=== PATIENT | female | born 1995 | race Two or more races ===

== ENCOUNTER 2024-08-28 12:56 | Outpatient (AMB) | payer MEDICAID, SELFPAY ==
--- NOTE | 2024-08-28 13:05 | PD.ORTHCLVIS ---
Vital signs 08/28/24 13:06 Height 1.63 m Height Method Stated Weight 72.575 kg Weight Measurement Method Estimated by Patient BMI 27.4 BP 103/71 Blood Pressure Source Automatic Cuff Blood Pressure Location Left Upper Arm Position Sitting Respiration 18 Pulse 98 Pulse Source Monitor Temp 97.7 F Temp Source Temporal Artery Scan Pulse Oximetry (%) 97 Oxygen Delivery Method Room Air Med/Allergies Allergies & Medications Allergies No Known Allergies Allergy (Verified 08/28/24 13:07) Medication Reconciliation prednisone 5 mg tablet 5 mg PO Q OTHER DAY 08/28/24 [History Confirmed 08/28/24] Exam Exam Patient is in no acute distress and is cooperative with the examination today. Breathing is nonlabored. In no respiratory distress. Patient has no paraspinal tenderness. Spinal deformity cannot be appreciated. The gait of the patient is nonantalgic Bilateral extremities were evaluated and demonstrates sensation intact to light touch. Palpable pedal pulses are present. No significant edema is present. Bilateral knees were examined and the patient has full strength and range of motion.. The right hip was examined. Patient was able to flex to 90 degrees, adduct to 30 degrees, abduct to 40 degrees, internally rotate to 20 degrees, and externally rotate to 20 degrees. Patient has a negative logroll. Stinchfield is negative. The patient is nontender diffusely to touch. The left hip was examined. Patient was able to flex to 90 degrees, adduct to 30 degrees, abduct to 40 degrees, internally rotate to 2 degrees, and externally rotate to 10 degrees. Patient has a Positive. The stinchfield is negative. [facility] from [facility] imaging demonstrate complete joint space loss symmetrically. There is no protrusio Assessment and Plan Problem List (1) Rheumatoid arthritis involving left hip: Status: Acute Plan: Patient is a 28-year-old female with a left hip pain and left hip rheumatoid arthritis. We discussed nonoperative and operative options.I would first like to start with conservative treatment. We discussed that he is off and on for age. We will start with a cortisone injection of her left hip. I have also sent her prescription for anti-inflammatories Office Procedures GNS Level of Care Nursing/Assessment Patient Status: Initial/New Patient Nursing Assessment/Reassesment: Medication Reconciliation, Update PMH in EMR and Vital Signs Coordination of Care: Complex Care and Chronic Disease 1-5, Education Complex Pt/Fam, Consent,records obtained, informed consent, 1 Ins Authorization, Lab and Imaging orders, Results/Orders obtained and Staff clarify orders New Patient Charge New Patient Point Assignment: 1124 New Patient Point Charge: CLAIMS SUPPORT SPECIALIST Level 4 ([id number]) MA Intake Visit Data Collection New Patient or Established: New Patient (never been to [facility]) Reason for Visit:: LEFT HIP PAIN Seen by Clinical Staff ONLY (RN/MA): No Continuous Mining Operator Required: No PCP or OBGYN visit in last 3 months: Yes Hx Now: No Do You Feel Safe at Home: Yes Authorities Contacted: N/A Questionairres Past Medical History Past Medical History Have you ever been diagnosed with any of the following: Subjective Visit Visit for: new patient and hip (LEFT) Immunization / Flu Flu Vaccine in the Last 12 Months: No Flu Vaccine Exclusion Criteria: Refused by Patient History of Present Illness Chief complaint: Left hip pain Radha is a 28-year-old female with severe rheumatoid arthritis. She had multiple joint involvement and is rheumatoid Medications including rinvoq and prednisone. The left hip pain is affecting her quality life and happiness. She has no rides injections. She has not had NSAIDs. Pain Pain level (0-10): 10 Pain duration: ALL DAY Pain location: inside (medial) and other (specify) (HIP) Pain quality: sharp, dull and aching Pain timing: night, increases with activity and stairs Associated signs & symptoms: none Ambulatory data Ambulatory device: cane and other (specify) (WHEELCHAIR) Treatments Number of previous injections: 1 Improvement with previous injections: No Improvement with PT: No Improvement with NSAIDS: no Review of Systems Review of Systems: All systems negative unless otherwise noted in HPI.
[2024-08-28 13:06] VITALS: BP 103/71; PULSE 98; RESP 18; TEMP 36.5; O2SAT 97; BMI 27.4
== END 2024-08-28 13:34 | disposition home or self-care (01) ==
LOC: HODSRG 12:56
PROVIDERS: Supervising Provider Orthopaedic Surgery Adult Reconstructive Orthopaedic Surgery; Visit Provider Orthopaedic Surgery Adult Reconstructive Orthopaedic Surgery
DX: M06.852 Other specified rheumatoid arthritis, left hip (principal); M25.552 Pain in left hip
CPT/HCPCS: 99204; G0463

== ENCOUNTER → 2024-09-22 | Outpatient (CLI) | payer MEDICAID, SELFPAY ==
--- NOTE | 2024-09-22 13:02 | XR_ITS ---
Examination: Steroid injection left hip joint with imaging guidance Fluoroscopy AP right hip single view. Exam date and time: September 22, 2024 1322 hours INDICATIONS: Left hip joint pain one year Informed consent provided. Technique: A timeout was completed verifying correct patient, procedure, site, positioning. The patient was placed in supine position appropriate for the steroid injection The patient's site was prepped and draped in sterile fashion 5 cc 1% lidocaine administered locally for anesthesia. Sterile drape applied, maximum barrier sterile technique. Utilizing fluoroscopic guidance, 23-gauge needle placed in the left hip joint 1 cc Kenalog 40 in 5 cc 0.25% Marcaine introduced into the left hip joint The patient was in satisfactory and stable condition on completion of the procedure Attending radiologist was present for the entire procedure Estimated blood loss 0 cc. Impression: Successful steroid injection left hip joint with imaging guidance Fluoroscopy 0.1 minute radiation dose 1.83 milligray 1 spot AP fluoroscopic left hip film .
== END | disposition home or self-care (01) ==
LOC: SIRX 12:41
PROVIDERS: PCP Internal Medicine Rheumatology; Referring Provider Orthopaedic Surgery Adult Reconstructive Orthopaedic Surgery; Visit Provider Orthopaedic Surgery Adult Reconstructive Orthopaedic Surgery
DX: M16.12 Unilateral primary osteoarthritis, left hip (principal); M05.6 Rheumatoid arthritis with involvement of other organs and systems
CPT/HCPCS: 20610; 77002

== ENCOUNTER 2024-09-29 08:56 | Outpatient (AMB) | payer MEDICAID, SELFPAY ==
[2024-09-29 09:15] VITALS: BP 96/62; PULSE 74; RESP 18; TEMP 36.5; O2SAT 92; BMI 28.1
--- NOTE | 2024-09-29 09:15 | ORTHONT_ITS ---
Vital signs 09/29/24 09:15 Height 1.63 m Height Method Stated Weight 74.871 kg Weight Measurement Method Standing Scale BMI 28.1 BP 96/62 Blood Pressure Source Automatic Cuff Blood Pressure Location Right Upper Arm Position Sitting Respiration 18 Pulse 74 Pulse Source Monitor Temp 97.7 F Temp Source Temporal Artery Scan Pulse Oximetry (%) 92 L Oxygen Delivery Method Room Air Med/Allergies Allergies & Medications Allergies No Known Allergies Allergy (Verified 09/29/24 09:16) Medication Reconciliation prednisone 5 mg tablet 5 mg PO Q OTHER DAY 08/28/24 [History Confirmed 09/29/24] Exam Exam Patient is in no acute distress and is cooperative with the examination today. Breathing is nonlabored. In no respiratory distress. Patient has no paraspinal tenderness. Spinal deformity cannot be appreciated. The gait of the patient is nonantalgic Bilateral extremities were evaluated and demonstrates sensation intact to light touch. Palpable pedal pulses are present. No significant edema is present. Bilateral knees were examined and the patient has full strength and range of motion.. The right hip was examined. Patient was able to flex to 90 degrees, adduct to 30 degrees, abduct to 40 degrees, internally rotate to 20 degrees, and externally rotate to 20 degrees. Patient has a negative logroll. Stinchfield is negative. The patient is nontender diffusely to touch. The left hip was examined. Patient was able to flex to 90 degrees, adduct to 30 degrees, abduct to 40 degrees, internally rotate to 2 degrees, and externally rotate to 10 degrees. Patient has a Positive. The stinchfield is negative. X-rays from [facility] imaging demonstrate complete joint space loss symmetrically. There is no protrusio. The x-rays are from August 2023 Assessment and Plan Problem List (1) Rheumatoid arthritis involving left hip: Status: Acute Plan: Patient is a 28-year-old female with a left hip pain and left hip rheumatoid arthritis. We discussed nonoperative and operative options. I would first like to start with conservative treatment. We discussed that she is extremely young for her age. The x-rays are over a-year-old and the last hip injection did not help. I discussed with her I would get new x-rays as it has been a year. We will need a plan to wean off the medication if we were to proceed with surgery. Office Procedures GNS Level of Care Nursing/Assessment Patient Status: Established Patient Nursing Assessment/Reassesment: Medication Reconciliation, Update PMH in EMR and Vital Signs Coordination of Care: Complex Care and Chronic Disease 1-5, Education Complex Pt/Fam, Consent,records obtained, informed consent, Results/Orders obtained and Staff clarify orders Established Patient Charge Established Patient Point Assignment: 95 Established Patient Point Charge: EP Level 3 (80-115) MA Intake Visit Data Collection New Patient or Established: Established Patient (seen at [facility] within 3 years) Reason for Visit:: F/U HIP INJECTION Seen by Clinical Staff ONLY (RN/MA): No Verbal consent obtained for Telemed visit?: No Sales Developer Required: No PCP or OBGYN visit in last 3 months: Yes Hx Now: No Do You Feel Safe at Home: Yes Authorities Contacted: N/A Questionairres Past Medical History Past Medical History Have you ever been diagnosed with any of the following: Subjective Visit Visit for: follow up visit, hip and injections Immunization / Flu Flu Vaccine in the Last 12 Months: No Flu Vaccine Exclusion Criteria: No Exclusion Criteria History of Present Illness Chief complaint: F/U HIP INJECTIONS Radha is a 28-year-old female with severe rheumatoid arthritis. She had multiple joint involvement and is rheumatoid Medications including rinvoq and prednisone. The left hip pain is affecting her quality life and happiness. She had a recent left hip injection and reported almost no relief. She is in a wheelchair or uses a cane. The pain is affecting her quality life and happiness and she reports has been miserable for over a year Pain Pain level (0-10): 10 Pain duration: ALL DAY Pain location: groin Pain quality: sharp Pain timing: night, increases with activity and stairs Associated signs & symptoms: weakness Ambulatory data Ambulatory device: cane and other (specify) (WHEELCHAIR) Treatments Number of previous injections: 1 Improvement with previous injections: No Improvement with PT: No Improvement with NSAIDS: no Review of Systems Review of Systems: All systems negative unless otherwise noted in HPI.
--- NOTE | 2024-09-29 09:36 | XR_ITS ---
Examination:Left hip AP, lateral, AP pelvis 3 views Technique: Hip AP lateral, AP pelvis, 3 views Exam date and time:September 29, 2024 0946 hours INDICATIONS: Left hip pain one year, diagnosis rheumatoid arthritis FINDINGS: Severe osteopenia Severe narrowing left hip joint Moderate narrowing right hip joint No hip or pelvic fracture IMPRESSION: Severe narrowing left hip joint.
--- NOTE | 2024-09-29 09:36 | XR_ITS ---
Examination: Lumbar spine 3 views Technique one AP lateral coned lateral lower lumbar spine 3 views Exam date and time: September 29, 2024 0949 hours INDICATIONS: Lower back pain one year, diagnosis rheumatoid arthritis. FINDINGS: Satisfactory alignment lumbar vertebral bodies Mild to moderate disc narrowing L5-S1 No lumbar fracture No spondylolisthesis IMPRESSION: Mild to moderate lumbar disc narrowing L5-S1
== END 2024-09-29 09:38 | disposition home or self-care (01) ==
PROVIDERS: Supervising Provider Orthopaedic Surgery Adult Reconstructive Orthopaedic Surgery; Visit Provider Orthopaedic Surgery Adult Reconstructive Orthopaedic Surgery
DX: M06.852 Other specified rheumatoid arthritis, left hip (principal); M25.552 Pain in left hip; M48.07 Spinal stenosis, lumbosacral region
CPT/HCPCS: 72100; 73502; 99213; G0463

== ENCOUNTER 2024-10-13 11:40 | Outpatient (AMB) | payer MEDICAID, SELFPAY ==
--- NOTE | 2024-10-13 11:41 | PD.ORTHTELE ---
Med/Allergies Allergies & Medications Allergies No Known Allergies Allergy (Verified 10/13/24 11:41) Medication Reconciliation prednisone 5 mg tablet 5 mg PO Q OTHER DAY 08/28/24 [History Confirmed 10/13/24] Subjective Visit Visit for: follow up visit, hip and x-rays Immunization / Flu Flu Vaccine in the Last 12 Months: No Flu Vaccine Exclusion Criteria: No Exclusion Criteria History of Present Illness Chief complaint: F/U HIP XRAYS Jihan is a pleasant 28-year-old female with rheumatoid arthritis and a left hip pain. She is on immunomodulators. She is seeing her labeling machine operator tomorrow. She had a cortisone injection of her left hip and only received moderate relief. The pain has already returned. Personal History Occupation: UNEMPLOYED Pain Pain level (0-10): 10 Pain location: groin and anterior Pain quality: sharp Pain timing: night and increases with activity Associated signs & symptoms: numbness, weakness and stiffness Ambulatory data Ambulatory device: cane, walker and other (specify) (WHEELCHAIR) Treatments Improvement with previous injections: No Improvement with PT: No Improvement with NSAIDS: no Review of Systems Review of Systems: All systems negative unless otherwise noted in HPI. Assessment and Plan Problem List (1) Rheumatoid arthritis involving left hip: Status: Acute Plan: Patient is a 28-year-old female with a left hip pain and left hip rheumatoid arthritis. We discussed nonoperative and operative options.We looked at her x-rays and she has severe arthritis with complete joint space obliteration of the left hip. I discussed with her that she is awfully young for her age. I would like to continue with conservative treatment if possible. I would like for her to get her rheumatoid arthritis optimized before proceeding with surgery if possible. I discussed with her that she will likely need a revision in the future and is very important delay surgery if possible if she can tolerate it Office Procedures GNS Level of Care Nursing/Assessment Patient Status: Established Patient Nursing Assessment/Reassesment: Medication Reconciliation, Update PMH in EMR and Vital Signs Coordination of Care: Complex Care and Chronic Disease 1-5, Education Complex Pt/Fam, Consent,records obtained, informed consent, Results/Orders obtained and Staff clarify orders Established Patient Charge Established Patient Point Assignment: 95 Telehealth Telemed Phone/Video with patient at home & Dr,PA,WOOD FINISHER APPRENTICE: Yes
== END 2024-10-13 11:45 | disposition home or self-care (01) ==
LOC: HODSRG 11:40
PROVIDERS: Supervising Provider Orthopaedic Surgery Adult Reconstructive Orthopaedic Surgery; Visit Provider Orthopaedic Surgery Adult Reconstructive Orthopaedic Surgery
DX: M06.9 Rheumatoid arthritis, unspecified (principal)
CPT/HCPCS: 99212; G0463

== ENCOUNTER 2024-11-24 08:05 | Outpatient (AMB) | payer MEDICAID, SELFPAY ==
--- NOTE | 2024-11-24 08:13 | PD.ORTHCLVIS ---
Vital signs 11/24/24 08:14 Height 1.63 m Height Method Stated Weight 75.977 kg Weight Measurement Method Standing Scale BMI 28.5 BP 99/67 Blood Pressure Source Automatic Cuff Blood Pressure Location Right Upper Arm Position Sitting Respiration 18 Pulse 75 Pulse Source Monitor Temp 97.6 F Temp Source Temporal Artery Scan Pulse Oximetry (%) 98 Oxygen Delivery Method Room Air Med/Allergies Allergies & Medications Allergies No Known Allergies Allergy (Verified 11/24/24 08:20) Medication Reconciliation prednisone 5 mg tablet 5 mg PO Q OTHER DAY 08/28/24 [History Confirmed 11/24/24] Exam Exam Patient is in no acute distress and is cooperative with the examination today. Breathing is nonlabored. In no respiratory distress. Patient has no paraspinal tenderness. Spinal deformity cannot be appreciated. The gait of the patient is nonantalgic Bilateral extremities were evaluated and demonstrates sensation intact to light touch. Palpable pedal pulses are present. No significant edema is present. Bilateral knees were examined and the patient has full strength and range of motion.. The right hip was examined. Patient was able to flex to 90 degrees, adduct to 30 degrees, abduct to 40 degrees, internally rotate to 20 degrees, and externally rotate to 20 degrees. Patient has a negative logroll. Stinchfield is negative. The patient is nontender diffusely to touch. The left hip was examined. Patient was able to flex to 90 degrees, adduct to 30 degrees, abduct to 40 degrees, internally rotate to 2 degrees, and externally rotate to 10 degrees. Patient has a Positive. The stinchfield is negative. X-rays from [facility] imaging demonstrate complete joint space loss symmetrically. There is no protrusio. The x-rays are from August 2023 Assessment and Plan Problem List (1) Rheumatoid arthritis involving left hip: Status: Acute Plan: Patient is a 28-year-old female with a left hip pain and left hip rheumatoid arthritis. We discussed nonoperative and operative options. She has severe rheumatoid arthritis with complete obliteration of the left hip. We thus discussed different treatment options including anti-inflammatories, injections, physical therapy, and rheumatology medications. She She reports the pain is miserable and is affecting her quality life. We discussed that she is awfully young for her age and discussed that she is at high risk for infection and needing a revision in the future because of her age. She understands the risks and would still like to proceed with surgery. We would like for her to see her it generalist as well as get a medical clearance. In particular, we do have to figure out how to dose the Rinvoq and when to stop it. The nature and purpose of the total hip replacement, alternative method(s) of treatment, the material risks involved, and the possibility of complications were fully explained to the patient. The patient does NOT have any of the following contraindications to YAW: - Active infection of the hip joint, OR - Active systemic bacteremia, OR - Active skin infection or open wound at surgical site, OR - Neuropathic arthritis, OR - Severe, rapidly progressive neurological disease, OR - Severe medical condition that makes risks of the surgery outweigh the potential benefit The patient was told the most common risks and complications associated with a total hip replacement include, but are not limited to: blood clots in the leg, fatal pulmonary embolism, dislocation of the prosthesis, intraoperative and postoperative fractures of the femur or acetabulum, infection, failure of the prosthesis or grafting materials, complications from anesthesia, reactions to blood transfusions, postoperative leg length inequality, instability of the hip replacement, nerve damage or injury, vascular injury, delayed wound healing, infection, other injury or even . In addition, there are risks associated with anesthesia given during this operation. Also, the patient was told that after undergoing a total hip replacement there may still be persistent pain or disability. The patient was informed that the success of this operation in part depends upon the mechanical devices which are going to be implanted and that these devices can fail or malfunction, and may need to be repaired or replaced and there are no guarantees as to the longevity of this device or its parts and that it or its parts could fail prematurely. The patient was also notified that during the course of surgery, there may be a need to use bone graft from donors, and that any bone graft used will be carefully screened for communicable diseases, including AIDS, hepatitis, Deznel-Creutzfeldt, or other diseases, but despite the screening procedures, there is a small chance that they could contract one of these diseases. Finally, the patient was asked to follow completely and fully with all advice and recommended treatments, and that recovery and ultimate outcome are affected by their compliance with recommended treatment. We discussed the risks, benefits and treatment alternatives, and the patient is interested in proceeding with surgery. We will try to set this up as expeditiously as possible. Office Procedures GNS Level of Care Nursing/Assessment Patient Status: Established Patient Nursing Assessment/Reassesment: Medication Reconciliation, Update PMH in EMR and Vital Signs Coordination of Care: Complex Care and Chronic Disease 1-5, Education Complex Pt/Fam, Consent,records obtained, informed consent, Results/Orders obtained and Staff clarify orders Established Patient Charge Established Patient Point Assignment: 95 Established Patient Point Charge: EP Level 3 (80-115) MA Intake Visit Data Collection New Patient or Established: Established Patient (seen at [facility] within 3 years) Reason for Visit:: FOLLOW UP Seen by Clinical Staff ONLY (RN/MA): No Verbal consent obtained for Telemed visit?: No Medication Care Manager Required: No PCP or OBGYN visit in last 3 months: Yes Hx Now: No Do You Feel Safe at Home: Yes Authorities Contacted: N/A Questionairres Past Medical History Past Medical History Have you ever been diagnosed with any of the following: Respiratory Problems Smoking: No Smoking Cessation Counseling: No Smoking Exposure: No Tobacco Use: No Clubbing: No Subjective Visit Visit for: follow up visit Immunization / Flu Flu Vaccine in the Last 12 Months: No Flu Vaccine Exclusion Criteria: No Exclusion Criteria History of Present Illness Chief complaint: FOLLOW UP Radha is a 28-year-old female with severe rheumatoid arthritis. She had multiple joint involvement and is rheumatoid Medications including rinvoq and prednisone. The left hip pain is affecting her quality life and happiness. She had a recent left hip injection and reported almost no relief. She is in a wheelchair or uses a cane. The pain is affecting her quality life and happiness and she reports has been miserable for over a year. She has also tried physical therapy for over 5 months and has now had 2 hip injections Pain Pain level (0-10): 10 Pain duration: ALL DAY Pain location: inside (medial), outside (lateral), anterior and posterior Pain quality: sharp, dull, aching, burning and shocking Pain timing: night, increases with activity and stairs Associated signs & symptoms: none Ambulatory data Ambulatory device: cane Treatments Number of previous injections: 1 Improvement with previous injections: No Improvement with PT: No Improvement with NSAIDS: no Review of Systems Review of Systems: All systems negative unless otherwise noted in HPI.
[2024-11-24 08:14] VITALS: BP 99/67; PULSE 75; RESP 18; TEMP 36.4; O2SAT 98; BMI 28.5
== END 2024-11-24 08:29 | disposition home or self-care (01) ==
LOC: HODSRG 08:05
PROVIDERS: Supervising Provider Orthopaedic Surgery Adult Reconstructive Orthopaedic Surgery; Visit Provider Orthopaedic Surgery Adult Reconstructive Orthopaedic Surgery
DX: M06.852 Other specified rheumatoid arthritis, left hip (principal); M25.552 Pain in left hip
CPT/HCPCS: 99213; G0463

== ENCOUNTER 2024-12-31 08:04 | Outpatient (AMB) | payer MEDICAID, SELFPAY ==
--- NOTE | 2024-12-31 08:15 | ORTHONT_ITS ---
Vital signs 12/31/24 08:16 Height 1.63 m Height Method Stated Weight 78.528 kg Weight Measurement Method Standing Scale BMI 29.5 BP 109/76 Blood Pressure Source Automatic Cuff Blood Pressure Location Left Upper Arm Position Sitting Respiration 18 Pulse 76 Pulse Source Monitor Temp 97.7 F Temp Source Temporal Artery Scan Pulse Oximetry (%) 98 Oxygen Delivery Method Room Air Med/Allergies Allergies & Medications Allergies No Known Allergies Allergy (Verified 12/31/24 08:17) Medication Reconciliation prednisone 5 mg tablet 5 mg PO Q OTHER DAY 08/28/24 [History Confirmed 12/31/24] Exam Exam Patient is in no acute distress and is cooperative with the examination today. Breathing is nonlabored. In no respiratory distress. Patient has no paraspinal tenderness. Spinal deformity cannot be appreciated. The gait of the patient is nonantalgic Bilateral extremities were evaluated and demonstrates sensation intact to light touch. Palpable pedal pulses are present. No significant edema is present. Bilateral knees were examined and the patient has full strength and range of motion.. The right hip was examined. Patient was able to flex to 90 degrees, adduct to 30 degrees, abduct to 40 degrees, internally rotate to 20 degrees, and externally rotate to 20 degrees. Patient has a negative logroll. Stinchfield is negative. The patient is nontender diffusely to touch. The left hip was examined. Patient was able to flex to 90 degrees, adduct to 30 degrees, abduct to 40 degrees, internally rotate to 2 degrees, and externally rotate to 10 degrees. Patient has a Positive. The stinchfield is negative. X-rays from [facility] imaging demonstrate complete joint space loss symmetrically. There is no protrusio. The x-rays are from August 2023 Assessment and Plan Problem List (1) Rheumatoid arthritis involving left hip: Status: Acute Plan: Patient is a 28-year-old female with a left hip pain and left hip rheumatoid arthritis. We discussed nonoperative and operative options. She has severe rheumatoid arthritis with complete obliteration of the left hip. We thus discussed different treatment options including anti-inflammatories, injections, physical therapy, and rheumatology medications. She She reports the pain is miserable and is affecting her quality life. We discussed that she is awfully young for her age and discussed that she is at high risk for infection and needing a revision in the future because of her age. She understands the risks and would still like to proceed with surgery. She has stopped her Rinvoq weeks ago. The nature and purpose of the total hip replacement, alternative method(s) of treatment, the material risks involved, and the possibility of complications were fully explained to the patient. The patient does NOT have any of the following contraindications to YAW: - Active infection of the hip joint, OR - Active systemic bacteremia, OR - Active skin infection or open wound at surgical site, OR - Neuropathic arthritis, OR - Severe, rapidly progressive neurological disease, OR - Severe medical condition that makes risks of the surgery outweigh the potential benefit The patient was told the most common risks and complications associated with a total hip replacement include, but are not limited to: blood clots in the leg, fatal pulmonary embolism, dislocation of the prosthesis, intraoperative and postoperative fractures of the femur or acetabulum, infection, failure of the prosthesis or grafting materials, complications from anesthesia, reactions to blood transfusions, postoperative leg length inequality, instability of the hip replacement, nerve damage or injury, vascular injury, delayed wound healing, infection, other injury or even . In addition, there are risks associated with anesthesia given during this operation. Also, the patient was told that after undergoing a total hip replacement there may still be persistent pain or disability. The patient was informed that the success of this operation in part depends upon the mechanical devices which are going to be implanted and that these devices can fail or malfunction, and may need to be repaired or replaced and there are n o guarantees as to the longevity of this device or its parts and that it or its parts could fail prematurely. The patient was also notified that during the course of surgery, there may be a need to use bone graft from donors, and that any bone graft used will be carefully screened for communicable diseases, including AIDS, hepatitis, Denzel-Creutzfeldt, or other diseases, but despite the screening procedures, there is a small chance that they could contract one of these diseases. Finally, the patient was asked to follow completely and fully with all advice and recommended treatments, and that recovery and ultimate outcome are affected by their compliance with recommended treatment. We discussed the risks, benefits and treatment alternatives, and the patient is interested in proceeding with surgery. We will try to set this up as expeditiously as possible. Office Procedures GNS Level of Care Nursing/Assessment Patient Status: Established Patient Nursing Assessment/Reassesment: Medication Reconciliation, Update PMH in EMR and Vital Signs Coordination of Care: Complex Care and Chronic Disease 1-5, Education Complex Pt/Fam, Consent,records obtained, informed consent, Results/Orders obtained and Staff clarify orders Established Patient Charge Established Patient Point Assignment: 95 Established Patient Point Charge: EP Level 3 (80-115) MA Intake Visit Data Collection New Patient or Established: Established Patient (seen at [facility] within 3 years) Reason for Visit:: PRE OP L HIP REPLACEMENT Seen by Clinical Staff ONLY (RN/MA): No PCP or OBGYN visit in last 3 months: Yes Hx Now: No Do You Feel Safe at Home: Yes Authorities Contacted: N/A Questionairres Past Medical History Past Medical History Have you ever been diagnosed with any of the following: Respiratory Problems Smoking: No Smoking Cessation Counseling: No Smoking Exposure: No Tobacco Use: No Clubbing: No Subjective Visit Visit for: follow up visit and hip Immunization / Flu Flu Vaccine in the Last 12 Months: No Flu Vaccine Exclusion Criteria: No Exclusion Criteria History of Present Illness Chief complaint: FOLLOW UP Radha is a 28-year-old female with severe rheumatoid arthritis. She had multiple joint involvement and is rheumatoid Medications including rinvoq and prednisone. The left hip pain is affecting her quality life and happiness. She had a recent left hip injection and reported almost no relief. She is in a wheelchair or uses a cane. The pain is affecting her quality life and happiness and she reports has been miserable for over a year. She has also tried physical therapy for over 5 months and has now had 2 hip injections Pain Pain level (0-10): 10 Pain duration: CONSTANT Pain location: inside (medial) and outside (lateral) Pain quality: sharp, dull and aching Pain timing: night, increases with activity and stairs Associated signs & symptoms: none Ambulatory data Ambulatory device: other (specify) (WHEEL CHAIR) Treatments Number of previous injections: 1 Improvement with previous injections: No Improvement with PT: No Improvement with NSAIDS: no Review of Systems Review of Systems: All systems negative unless otherwise noted in HPI.
[2024-12-31 08:16] VITALS: BP 109/76; PULSE 76; RESP 18; TEMP 36.5; O2SAT 98; BMI 29.5
== END 2024-12-31 08:38 | disposition home or self-care (01) ==
LOC: HODSRG 08:04
PROVIDERS: PCP Nurse Practitioner Family; Referring Provider Nurse Practitioner Family; Supervising Provider Orthopaedic Surgery Adult Reconstructive Orthopaedic Surgery; Visit Provider Orthopaedic Surgery Adult Reconstructive Orthopaedic Surgery
DX: M06.852 Other specified rheumatoid arthritis, left hip (principal); M25.552 Pain in left hip
CPT/HCPCS: 99213; G0463

== ENCOUNTER → 2025-01-05 | Outpatient (CLI) | payer MEDICAID, SELFPAY ==
--- NOTE | 2025-01-05 11:54 | XR_ITS ---
Examination: CT bilateral hips, without contrast. 2-D sagittal reconstructions. 2-D coronal reconstructions. 3-D reconstructions. Date and time of exam:January 05, 2025 1235 hours INDICATIONS: Left hip pain diagnosis osteoarthritis beginning one year ago CTDI: vol (mGy):16 DLP: (mGycm):848 Technique: Multiple 1.25 mm axial sections of the bilateral hips have been obtained. 2-D sagittal and coronal reconstructions have been obtained. 3-D reconstructions have been obtained. Low dose protocols were performed. One or more of the following dose reduction techniques were used; automated exposure control, adjustment of the mA and/or KV according to patient size, use of iterative reconstruction technique. Findings: Moderate osteopenia Mild to moderate narrowing right hip joint Moderate to advanced narrowing left hip joint No hip fractures or avascular necrosis Bones of the pelvis intact IMPRESSION: Mild to moderate right hip osteoarthritis Moderate to advanced left hip osteoarthritis
== END | disposition home or self-care (01) ==
PROVIDERS: PCP Orthopaedic Surgery Adult Reconstructive Orthopaedic Surgery; Referring Provider Orthopaedic Surgery Adult Reconstructive Orthopaedic Surgery; Visit Provider Orthopaedic Surgery Adult Reconstructive Orthopaedic Surgery
DX: M16.0 Bilateral primary osteoarthritis of hip (principal)
CPT/HCPCS: 72192; 73700

== ENCOUNTER → 2025-01-12 | Outpatient (CLI) | payer MEDICAID, SELFPAY ==
--- NOTE | 2025-01-12 10:44 | XR_ITS ---
Examination: AP pelvis single view TECHNIQUE: AP standing pelvis single view Exam date and time: January 12, 2025 1054 hours Comparison September 29, 2024 INDICATION: Left-sided pelvic pain one year. FINDINGS: Mild osteopenia. Advanced left hip osteoarthritis Moderate narrowing right hip joint Bones of the pelvis intact The film is rotated RPO IMPRESSION: Advanced left hip osteoarthritis
== END | disposition home or self-care (01) ==
PROVIDERS: Referring Provider Orthopaedic Surgery Adult Reconstructive Orthopaedic Surgery; Visit Provider Orthopaedic Surgery Adult Reconstructive Orthopaedic Surgery
DX: M16.12 Unilateral primary osteoarthritis, left hip (principal)
CPT/HCPCS: 72170

== ENCOUNTER 2025-01-13 16:16 | Observation (INO) | payer MEDICAID, SELFPAY ==
[2025-01-12 07:39] VITALS: BMI 33.2
[2025-01-12 09:53] LABS: Basophils % (Auto) 0 % (0-2.5); Eosinophils % (Auto) 1 % (0-10); Hematocrit 39.6 % (36.0-46.0); Immature Granulocytes % (Auto) 1 % (0-0); Immature Granulocytes Auto 0.05 Thou/mm3 (0.00-0.00); Lymphocytes # (Auto) 1.1 Thou/mm3 (1.0-4.8); Lymphocytes % (Auto) 16 % (10-50); Mean Corpuscular HGB Conc 32.8 g/dl (31.0-37.0); Mean Corpuscular Hemoglobin 28.6 pg (25.0-35.0); Mean Corpuscular Volume 87 fL (80-100); Monocytes # (Auto) 0.7 Thou/mm3 (0.0-0.8); Monocytes % (Auto) 10 % (0-12); Neutrophils # (Auto) 5.2 Thou/mm3 (1.8-7.7); Neutrophils % (Auto) 73 % (37-80); Nucleated Red Blood Cell % 0 /100 WBC (0); Platelet Count 291 Thou/mm3 (140-440); RDW Standard Deviation 40.7 fL (36.4-46.3); Red Blood Count 4.54 Miln/mm3 (4.00-5.20); White Blood Count 7.1 Thou/mm3 (3.6-11.0)
[2025-01-12 09:59] LABS: Partial Thromboplastin Time 28.2 Seconds (22.0-36.0); Prothrombin Time 10.8 Seconds (9.0-12.2)
[2025-01-12 10:22] LABS: Anion Gap 8 (7-16); BUN/Creatinine Ratio 18 Ratio (12-20); Blood Urea Nitrogen 11 mg/dL (9-23); Calcium 9.5 mg/dL (8.3-10.6); Carbon Dioxide 28.4 mMol/L (20.0-31.0); Chloride 101 mMol/L (98-107); Creatinine (Component) 0.6 mg/dL (0.6-1.3); Estimated Creatinine Clearance 131.2 mL/min (>60); Glucose 101 mg/dL (74-106); Osmolality,Calculated 273 (275-295); Potassium 3.9 mMol/L (3.4-5.1); Sodium 137 mMol/L (136-145); eGFR > 60 See Note
[2025-01-13] VITALS (16 sets, daily range): BP systolic 92–112; BP diastolic 56–79; PULSE 63–99; RESP 12–20; TEMP 36.1–36.7; O2SAT 97–100; BMI 33.3
--- NOTE | 2025-01-13 09:13 | XR_ITS ---
Examination: AP left hip 2 views TECHNIQUE: AP left hip 2 views Date and time: January 13, 2025 1232 hours INDICATIONS: Left hip arthroplasty today FINDINGS: Total left hip arthroplasty. Satisfactory alignment IMPRESSION: Total left hip arthroplasty with satisfactory alignment
[2025-01-13] MEDS: ACETAMINOPHEN 325 MG TABLET 650 MG PO (10:39)
[2025-01-13] MEDS: MELOXICAM 7.5 MG TABLET PO (10:39)
[2025-01-13] MEDS: PREGABALIN 75 MG CAPSULE PO (10:39)
[2025-01-13] MEDS: RINGERS LACTATED 1000 ML 1,000 ML 20 ML IV (10:39)
--- NOTE | 2025-01-13 10:46 | PD.ORTHPN ---
Subjective Subjective Narrative: I discussed with the patient that she is at high risk for complications given her age. She is at high risk for needing revision in the future because she is so young. We also discussed she is on immunomodulators and thus has a high risk for infection. We will plan for the surgery through a anterolateral approach given her body habitus. I discussed with her that because of her pelvic tilt she is also at high risk for dislocation. In addition, her cup is on the smaller side on the template. The patient understands the risks and would still like to proceed with surgery. She understands she is at very high risk for complications Exam Vital Signs Temp Pulse Resp BP Pulse Ox 97.7 F 99 14 112/75 100 01/13/25 10:24 01/13/25 10:24 01/13/25 10:24 01/13/25 10:24 01/13/25 10:24 Objective - Ortho Labs 01/12/25 08:07 01/12/25 08:07
--- NOTE | 2025-01-13 13:28 | ESOP_ITS ---
Date of Procedure 01/13/25 Pre Op Diagnosis left hip rheumatoid arthritis Post Op Diagnosis left hip rheumatoid arthritis Procedure left totoal hip replacement Findings full thickness cartilage loss and osteophytes Procedure Description Indications: The patient is a 29y.o. year-old with a longstanding history of left hip pain. After considering the patient's condition and the impact of their hip rheumatoid arthritis on the patient's quality of life and risks of nonoperative treatment, total hip replacement was offered as a reasonable option. She understands she is at high risk for revision and infection given her age and rheumatoid arthritis history. She understands the risks. Prior to the surgery I discussed the nature of the hip replacement surgery including alternatives to surgery and the purpose of, and indications for proceeding with surgery. I discussed that this surgery is a shared decision between the patient and the surgeon. Risks and benefits and alternatives of the procedure have been explained to the patient and their family. Anesthesia complications and risks include but are not limited to stroke, heart attack, and . The surgical risks include but are not limited to infection, instability/dislocation, bleeding, nerve and blood vessel injury, deep vein thrombosis, pulmonary embolus, stiffness, pain, scar, need for reoperation, leg length discrepancy, thigh numbness, weakness, and mechanical failure of the implant including loosening, metal complications, metal allergy, wear or breakage. I discussed the expected recovery from surgery and the importance of compliance with all our pre and post-operative recommendations in order to maximize the recovery. The patient/family understands the risks of loss of life, loss of limb and, loss of function and wishes to proceed. They understand they are at increased risk for infection given their history of smoking. A signed and witnessed consent was obtained and placed in the chart. Patient Positioning: The patient was placed in the lateral decubitus position on a standard table using a pegboard. An axillary role was placed. All extremities were padded to ensure adequate protection. A jc catheter was aseptically inserted. Time Out: A timeout was performed prior to the procedure which verified the correct patient, positioning, operation to be performed, operative site, antibiotics, allergies, imaging, and any other concerns. All parties were in agreement. Procedure in detail: The operative site was cleaned and draped in the usual sterile fashion. A final timeout was performed with all parties in agreement. We first placed percutaneous brody pins above the ASIS and attached a hip array. A modified anterolateral approach to the hip was utilized. A 16cm skin incision was made centered over the greater trochanter in line with the femur. This was taken down through skin and subcutaneous tissue using a 10 blade. Bleeding was controlled using electrocautery. The fascia was identified and split in line with the femur. The charnley retractor was then placed. The abductor insertion was identified and a split made in the anterior 1/3 of the tendon proximally. Retractors were placed and the gluteus minimus was visualized. A capsulotomy was made down to the femoral neck anterior to the minimus. A split was then made in the anterior 1/3 of the vastus lateralis. A retractor was then placed anterior to the femoral shaft, the tendon was tagged with #1 ethibond sutures and a U- shaped split was made in the anterior 1/3 of the abductor tendon being careful to leave enough tendon to re-attach. The hip was then gently externally rotated as the anterior tissues were taken down with the tendon and capsule as one sleeve. Once the anterior tissue had been release off of bone a bone hook was placed and the hip was gently dislocated. Retractors were placed around the femoral neck and the femoral neck osteotomy was then made to freshen up the cut. The femoral head removed. The leg was then placed in extension and retractors were placed anterior and posterior to the acetabulum. We first mapped the acetabulum and pelvis with a probe. The inferior capsule was release to improved visualization and the labrum and osteophytes around the acetabulum were removed. The acetabulum was then reamed to bleeding bone with adequate wall coverage and the cup was impacted into place using the [employer] robot. Screws were then placed followed by the liner which was impacted and confirmed to be seated. We then turned our attention to the femur. The leg was brought into external rotation and the femur was exposed. A canal finder was used followed by a box osteotomy and the femur was broached sequentially. The trial stem was then left in and the hip was trialed using various neck offsets and head sizes until the appropriate size was found based on leg length, stability. Once we were satisfied with the construct a cross-table AP pelvis radiograph was obtained to confirm appropriate positioning and sizing. The hip was then dislocated and the trials were then removed and the final stem impacted into placed. The hip was then again trialed and the appropriate head size identified. The lindsay taper was then cleaned and dried and the final head impact into place and tested. The acetabulum was irrigated and confirmed to be free of debris. The hip was then reduced and taken through range of motion. The hip was stable in abduction and external rotation, adduction and external rotation, flexion past 90 degrees and internal rotation past 20 degrees. It did not sublux throughout range of motion and no impingement was detected. Leg lengths were appropriately restored based on preoperative leg lengths and intraoperative testing. Lengths and offset were further verified with the robot. We then removed the pins and the greater troch marker. The hip was then copiously irrigated with dilute betadine followed by normal tressa ine. The hip was then injected with the cocktail per protocol The hip was the closed in layers. The abductor tendon was closed with #1 ethibond. The fascia was closed with 0 Vicryl followed by an 0 V-lock. . The deep layer was closed with 0-Vicryl and the subcutaneous layer by a 2-0 Vicryl. The subdermal layer was closed with a 3-0 monocryl. The skin was then cleaned and dried and steri- strips placed followed by a sterile dressing. The drapes were then taken down and the patient was placed supine. Leg lengths were confirmed to be appropriate and the patient's lower extremities were warm and well perfused with brisk capillary refill and palpable pulses. The patient was then awoken, transferred to the [facility] and taken to the PACU in stable condition. They tolerated the procedure well. The patient's family/caregiviers were made aware of their condition. Postoperative plan Activity: WBAT, no hip precautions , no active hip abduction DVT Prophylaxis: aspirin 81mg BID Antibiotics: Standard postoperative antibiotics x 24 hours Implants: Raymond 48 cup, 4 standard insignia, 1 screws, standard liner, 36-2.5 head Anesthesia spinal Implants raymond Pathology / specimen None Pathology comment: none Estimated Blood Loss 150 Condition Stable Disposition observation Surgeon Trey Baez MD Surgical Staff Operation Date: 01/13/25 12:45 Case Staff DEPARTMENT SUPERVISOR: Adam Fisher RNentrepreneurship program director: Ana Santos
--- NOTE | 2025-01-13 13:31 | XR_ITS ---
Examination:Left hip AP, lateral, AP pelvis 3 views Technique: Hip AP lateral, AP pelvis, 3 views Exam date and time:January 13, 2025 1445 hours INDICATIONS: Postop hip arthroplasty FINDINGS: Total left hip arthroplasty. Satisfactory alignment Mild to moderate narrowing right hip joint IMPRESSION: Total left hip arthroplasty with satisfactory alignment.
--- NOTE | 2025-01-13 14:02 | SUR.PHASEI ---
1402 Patient arrived to recovery resting comfortably in [place], on oxygen 10L via oxy mask, breathing unlabored, vital signs stable, denies pain, dressing intact to left hip sutures, prineo, abd, medipore tape, no bleeding noted, bilateral dorsalis pedis pulses present when palpated, post spinal anesthesia assessment via ice patient has dermatome sensation at [id number], will monitor patient, due to spinal anesthesia patient unable to move her bilateral lower extremities, denies nausea, report received from Adam PEPE/Lorene PAUL and Rafa ALEXANDRE
--- NOTE | 2025-01-13 14:53 | SUR.PHASEI ---
1453 XRAY complete per MD order
--- NOTE | 2025-01-13 16:03 | SUR.PHASEII ---
1551 Report given to Raven ALEXANDRE, patient meets discharge criteria from recovery, awake and alert talking with this underwriter mortgage loan, breathing unlabored, vital signs stable, denies pain, dressing intact; no bleeding noted, drinking fluids; denies nausea, post spinal anesthesia assessment via ice patient has dermatome sensation at L1 and is able to move bilateral extremities, patient has her and dad at bedside with her. 1603 Patient transported via bed to room 379 without incident.
[2025-01-13] MEDS: ACETAMINOPHEN 500 MG TABLET 1000 MG PO ×2 (17:45→23:54)
[2025-01-13] MEDS: oxyCODONE HCL 5 MG IR TAB PO (20:49)
[2025-01-13] MEDS: ASPIRIN EC 81 MG TABEC PO (20:50)
[2025-01-14] VITALS: BP 97/67; PULSE 79; RESP 16; TEMP 36.5; O2SAT 97
[2025-01-14 04:00] VITALS: BP 111/69; PULSE 96; RESP 16; TEMP 36.6; O2SAT 99
[2025-01-14] MEDS: oxyCODONE HCL 5 MG IR TAB PO ×2 (05:43→13:16)
[2025-01-14 08:00] VITALS: BP 106/66; PULSE 91; RESP 17; TEMP 36.6; O2SAT 100
[2025-01-14] MEDS: PANTOPRAZOLE INJ 40 MG VIAL IV (08:36)
[2025-01-14] MEDS: ASPIRIN EC 81 MG TABEC PO (08:36)
[2025-01-14] MEDS: oxyCODONE HCL 5 MG IR TAB 10 MG PO (09:41)
--- NOTE | 2025-01-14 11:52 | PC.SS ---
Addendum entered by Kera Gallardo 01/14/25 14:32: Patient needs a 3:1 commode Patient is physically incapable of utilizing regular toilet facilities because his or her diagnosis confines the patient to a single room. Patient is confined to a single level, and there is no toilet on that level; patient cannot access the toilet facilities in a timely manner due to lack of ambulation. Original Note: Patient needs a wheelchair for home The patient and her family are requesting a wheel chair. Patients diagnosis creates mobility limitations that significantly impairs ability to participate in the patient?s activities of daily living either in their entirety or in a reasonable timeframe in the home and the patient?s mobility limitations cannot be sufficiently resolved with an appropriately fitted cane or walker. Also, the use of a manual wheelchair will sufficiently improve patients ability to participate in the activities of daily living in the home and the patient is willing to use the wheelchair that is provided in the home. The patient has some one in the home that is available, willing and able to provide assistance with the wheelchair.
--- NOTE | 2025-01-14 11:57 | PC.SS ---
Addendum entered by Kera Gallardo 01/14/25 15:07: [facility] is contracted with insurance and the [place] branch will coordinate delivery at patient's home. Updated patient. Original Note: SS met with patient who is alert/oriented. She was able to verify demographics. Patient resides with her spouse and 4 children. Patient is independent with ADL's. Patient states she was using a walker at home. She feels with her pain she needs a wheelchair as well. Patient was admitted for left hip arthritis and had surgery yesterday. PT eval completed. PT recommended 3:1 commode. Patient prefers HH if possible. Patient states she follows an Arthritis specialist in [place]. PCP: [facility] in [place]. Last appt. was November. Alt medical decision maker is her spouse, Yuniel. D/c plan to return home. Family to transport. D/c plan: home w/DME alt medical decision maker is spouse, Yuniel, [phone]
[2025-01-14 12:00] VITALS: BP 106/61; PULSE 92; RESP 18; TEMP 36.4; O2SAT 99
[2025-01-14] MEDS: ACETAMINOPHEN 500 MG TABLET 1000 MG PO (12:04)
[2025-01-14 12:10] VITALS: PULSE 92; RESP 16; RESP 99; O2SAT 99
[2025-01-14 14:34] VITALS: BMI 11.0
[2025-01-14] MEDS: ceFAZolin/D5W 2 GM IV 2 GM/100 ML BAG IV (14:42)
[2025-01-14 16:00] VITALS: BP 99/66; PULSE 104; RESP 18; TEMP 36.2; O2SAT 100; BMI 11.0
== END 2025-01-14 17:03 | disposition home or self-care (01) ==
LOC: S3SX 16:18
PROVIDERS: Admitting Provider Orthopaedic Surgery Adult Reconstructive Orthopaedic Surgery; Referring Provider Orthopaedic Surgery Adult Reconstructive Orthopaedic Surgery; Visit Provider Orthopaedic Surgery Adult Reconstructive Orthopaedic Surgery
PROC: (CPT 27130; principal; 2025-01-13 12:15)
DX: M06.052 Rheumatoid arthritis without rheumatoid factor, left hip (principal)
CPT/HCPCS: 27130; 20985; 36415; 73501; 73502; 80048; 84703; 85025; 85610; 85730; 94664; 96374; 97163; A4217; A4649; C1713; C1776; G0378; J0689; J1100; J2250; J2371; J2470; J2704; J3010; J3490; J7120; J7999; A9270

== ENCOUNTER 2025-01-28 14:44 | Outpatient (AMB) | payer MEDICAID, SELFPAY ==
--- NOTE | 2025-01-28 14:56 | ORTHONT_ITS ---
Vital signs 01/28/25 14:57 Height 1.55 m Height Method Stated Weight 73.028 kg Weight Measurement Method Standing Scale BMI 30.4 BP 100/64 Blood Pressure Source Automatic Cuff Blood Pressure Location Left Upper Arm Position Sitting Respiration 18 Pulse 88 Pulse Source Monitor Temp 97.7 F Temp Source Temporal Artery Scan Pulse Oximetry (%) 99 Oxygen Delivery Method Room Air Med/Allergies Allergies & Medications Allergies No Known Allergies Allergy (Verified 01/28/25 15:03) Medication Reconciliation prednisone 5 mg tablet 5 mg PO Q OTHER DAY 08/28/24 [History Confirmed 01/28/25] upadacitinib 15 mg tablet,extended release 24 hr (Rinvoq) 15 mg PO QDAY 01/12/25 [History Confirmed 01/28/25] acetaminophen 500 mg tablet (Acetaminophen Extra Strength) 1,000 mg (2 x 500 mg) PO Q6H PRN pain #90 tabs 01/13/25 [Rx Confirmed 01/28/25] aspirin 81 mg tablet,delayed release 81 mg PO BID #60 tabs 01/13/25 [Rx Confirmed 01/28/25] doxycycline hyclate 100 mg tablet 100 mg PO BID #14 tabs 01/13/25 [Rx Confirmed 01/28/25] gabapentin 300 mg capsule 300 mg PO .qhs #30 caps 01/13/25 [Rx Confirmed 01/28/25] sennosides 8.6 mg-docusate sodium 50 mg tablet (Senna-S) 1 tab-cap PO QDAY #30 tabs 01/13/25 [Rx Confirmed 01/28/25] oxycodone 5 mg tablet 5 mg PO Q6H PRN pain #28 tabs 01/28/25 [Rx Confirmed 01/28/25] Exam Exam Patient is in no acute distress and is cooperative with the examination today. Breathing is nonlabored. In no respiratory distress. Patient has no paraspinal tenderness. Spinal deformity cannot be appreciated. The gait of the patient is nonantalgic Bilateral extremities were evaluated and demonstrates sensation intact to light touch. Palpable pedal pulses are present. No significant edema is present. Bilateral knees were examined and the patient has full strength and range of motion.. The right hip was examined. Patient was able to flex to 90 degrees, adduct to 30 degrees, abduct to 40 degrees, internally rotate to 20 degrees, and externally rotate to 20 degrees. Patient has a negative logroll. Stinchfield is negative. The patient is nontender diffusely to touch. The left hip was examined. Patient was able to flex to 90 degrees, adduct to 30 degrees, abduct to 40 degrees, internally rotate to 2 degrees, and externally rotate to 10 degrees. Patient has a Positive. The stinchfield is negative. X-rays from [facility] demonstrate complete joint space loss symmetrically. There is no protrusio. The x-rays are from August 2023 Assessment and Plan Problem List (1) Rheumatoid arthritis involving left hip: Status: Acute Plan: Patient is a 28-year-old female with a left hip pain and left hip rheumatoid arthritis. She is doing well status post left total hip replacement. She should continue with physical therapy We will see her in approximately 4 weeks Office Procedures GNS Level of Care Nursing/Assessment Patient Status: Established Patient Nursing Assessment/Reassesment: Medication Reconciliation, Update PMH in EMR and Vital Signs Coordination of Care: Complex Care and Chronic Disease 1-5, Education Complex Pt/Fam, Consent,records obtained, informed consent, Results/Orders obtained and Staff clarify orders Established Patient Charge Established Patient Point Assignment: 95 Established Patient Point Charge: EP Level 3 (80-115) MA Intake Visit Data Collection New Patient or Established: Established Patient (seen at [facility] within 3 years) Seen by Clinical Staff ONLY (RN/MA): No PCP or OBGYN visit in last 3 months: Yes Hx Now: No Do You Feel Safe at Home: Yes Authorities Contacted: N/A Questionairres Past Medical History Past Medical History Have you ever been diagnosed with any of the following: Neurological Problems Seizures: No Cardiology Problems Congestive Heart Failure: No Respiratory Problems Chronic Obstructive Pulmonary Disease (COPD): No Smoking: No Smoking Cessation Counseling: No Smoking Exposure: No Tobacco Use: No Clubbing: No Stomache/Intestinal Problems Hepatitis: No Genital/Urinary Problems Renal Disease: No Reproductive Problems Previous Pregnancies: Yes (4) Musculoskeletal Problems Rheumatoid Arthritis: Yes Endocrine Problems Diabetes Mellitus Type 1: No Diabetes Mellitus Type 2: No Other Problems Hospitalization: No Shingles: No Blood Transfusions: No Anesthesia Reactions: No Cancer: No Subjective Visit Visit for: follow up visit and hip Immunization / Flu Flu Vaccine in the Last 12 Months: No Flu Vaccine Exclusion Criteria: No Exclusion Criteria History of Present Illness Chief complaint: FOLLOW UP Radha is a 28-year-old female with severe rheumatoid arthritis. She is doing well status post left total hip replacement. She reports that the pain is substantially improved. She is not working with physical therapy yet. Her incision looks great Pain Pain level (0-10): 5 Pain duration: CONSTANT Pain location: inside (medial) and outside (lateral) Pain quality: sharp, dull and aching Pain timing: night, increases with activity and stairs Associated signs & symptoms: none Ambulatory data Ambulatory device: other (specify) Treatments Number of previous injections: 1 Improvement with previous injections: No Improvement with PT: No Improvement with NSAIDS: no Review of Systems Review of Systems: All systems negative unless otherwise noted in HPI.
[2025-01-28 14:57] VITALS: BP 100/64; PULSE 88; RESP 18; TEMP 36.5; O2SAT 99; BMI 30.4
== END 2025-01-28 15:03 | disposition home or self-care (01) ==
LOC: HODSRG 14:44
PROVIDERS: PCP Nurse Practitioner Family; Referring Provider Nurse Practitioner Family; Supervising Provider Orthopaedic Surgery Adult Reconstructive Orthopaedic Surgery; Visit Provider Orthopaedic Surgery Adult Reconstructive Orthopaedic Surgery
DX: M06.852 Other specified rheumatoid arthritis, left hip (principal); M25.552 Pain in left hip; Z96.642 Presence of left artificial hip joint
CPT/HCPCS: 99213; G0463

== ENCOUNTER 2025-02-25 12:48 | Outpatient (AMB) | payer MEDICAID, SELFPAY ==
--- NOTE | 2025-02-25 12:56 | ORTHONT_ITS ---
Vital signs 02/25/25 13:00 Height 1.55 m Height Method Measured Weight 75.807 kg Weight Measurement Method Standing Scale BMI 31.5 BP 107/70 Blood Pressure Source Automatic Cuff Blood Pressure Location Right Upper Arm Position Sitting Respiration 16 Pulse 102 H Pulse Source Monitor Temp 98.1 F Temp Source Temporal Artery Scan Pulse Oximetry (%) 99 Oxygen Delivery Method Room Air Med/Allergies Allergies & Medications Allergies No Known Allergies Allergy (Verified 02/25/25 13:02) Medication Reconciliation prednisone 5 mg tablet 5 mg PO Q OTHER DAY 08/28/24 [History Confirmed 02/25/25] upadacitinib 15 mg tablet,extended release 24 hr (Rinvoq) 15 mg PO QDAY 01/12/25 [History Confirmed 02/25/25] aspirin 81 mg tablet,delayed release 81 mg PO BID #60 tabs 01/13/25 [Rx Confirmed 02/25/25] doxycycline hyclate 100 mg tablet 100 mg PO BID #14 tabs 01/13/25 [Rx Confirmed 02/25/25] gabapentin 300 mg capsule 300 mg PO .qhs #30 caps 01/13/25 [Rx Confirmed 02/25/25] sennosides 8.6 mg-docusate sodium 50 mg tablet (Senna-S) 1 tab-cap PO QDAY #30 tabs 01/13/25 [Rx Confirmed 02/25/25] oxycodone 5 mg tablet 5 mg PO Q6H PRN pain #28 tabs 01/28/25 [Rx Confirmed 02/25/25] acetaminophen 500 mg tablet (Acetaminophen Extra Strength) 1,000 mg (2 x 500 mg) PO Q6H PRN pain #90 tabs 02/25/25 [Rx] Exam Exam Patient is in no acute distress and is cooperative with the examination today. Breathing is nonlabored. In no respiratory distress. Patient has no paraspinal tenderness. Spinal deformity cannot be appreciated. The gait of the patient is nonantalgic Bilateral extremities were evaluated and demonstrates sensation intact to light touch. Palpable pedal pulses are present. No significant edema is present. Bilateral knees were examined and the patient has full strength and range of motion.. The right hip was examined. Patient was able to flex to 90 degrees, adduct to 30 degrees, abduct to 40 degrees, internally rotate to 20 degrees, and externally rotate to 20 degrees. Patient has a negative logroll. Stinchfield is negative. The patient is nontender diffusely to touch. Left hip incision is clean dry and intact. Leg lengths are equal Assessment and Plan Problem List (1) Status post total hip replacement, left: Status: Acute Plan: Patient is a pleasant 29-year-old female with rheumatoid arthritis status post left total hip replacement. She reports she is doing well. She reports her pain is significant improved. She should start outpatient physical therapy. She is happy with her progress and her pain relief Office Procedures GNS Level of Care Nursing/Assessment Patient Status: Established Patient Nursing Assessment/Reassesment: Medication Reconciliation, Update PMH in EMR and Vital Signs Coordination of Care: Complex Care and Chronic Disease 1-5, Education Complex Pt/Fam, Consent,records obtained, informed consent, Lab and Imaging orders, Results/Orders obtained and Staff clarify orders Special Needs: Language special needs Established Patient Charge Established Patient Point Assignment: 110 Established Patient Point Charge: Level 3 (80-115) MA Intake Visit Data Collection New Patient or Established: Established Patient (seen at [facility] within 3 years) Reason for Visit:: 4 WEEK F/U YAW Seen by Clinical Staff ONLY (RN/MA): No Feather Washer Required: No PCP or OBGYN visit in last 3 months: Yes Hx Now: No Do You Feel Safe at Home: Yes Authorities Contacted: N/A Questionairres Past Medical History Past Medical History Have you ever been diagnosed with any of the following: Neurological Problems Seizures: No Cardiology Problems Congestive Heart Failure: No Respiratory Problems Chronic Obstructive Pulmonary Disease (COPD): No Smoking: No Smoking Cessation Counseling: No Smoking Exposure: No Tobacco Use: No Clubbing: No Stomache/Intestinal Problems Hepatitis: No Genital/Urinary Problems Renal Disease: No Reproductive Problems Previous Pregnancies: Yes (4) Musculoskeletal Problems Rheumatoid Arthritis: Yes Endocrine Problems Diabetes Mellitus Type 1: No Diabetes Mellitus Type 2: No Other Problems Hospitalization: No Shingles: No Blood Transfusions: No Anesthesia Reactions: No Cancer: No Subjective Visit Visit for: follow up visit and hip Immunization / Flu Flu Vaccine in the Last 12 Months: No Flu Vaccine Exclusion Criteria: No Exclusion Criteria History of Present Illness Chief complaint: 4 WEEK F/U YAW Patient is doing well status post total hip replacement. She is 6 weeks postop. She has resumed her written Francesco and her rheumatology medications are ready. She reports that the pain is significantly better than before surgery Personal History Red flag PMH: none BMI Counceling provided: No Pain Pain level (0-10): 3 Pain location: buttock Pain quality: sharp Pain timing: increases with activity Associated signs & symptoms: none Ambulatory data Ambulatory device: walker Treatments Improvement with previous injections: No Improvement with PT: No Improvement with NSAIDS: no Review of Systems Review of Systems: All systems negative unless otherwise noted in HPI.
[2025-02-25 13:00] VITALS: BP 107/70; PULSE 102; RESP 16; TEMP 36.7; O2SAT 99; BMI 31.5
--- NOTE | 2025-02-25 13:08 | XR_ITS ---
Examination:Left hip AP, lateral, AP pelvis 3 views Technique: Hip AP lateral, AP pelvis, 3 views Exam date and time:February 25, 2025 at 1317 hours Comparison January 13, 2025 INDICATIONS: Left hip surgery January 15, 2025 FINDINGS: Total left hip arthroplasty. Satisfactory alignment Mild to moderate narrowing right hip joint Bones of the pelvis intact IMPRESSION: Total left hip arthroplasty with satisfactory alignment.
== END 2025-02-25 13:10 | disposition home or self-care (01) ==
LOC: HODSRG 12:48
PROVIDERS: PCP Nurse Anesthetist, Certified Registered; Referring Provider Nurse Anesthetist, Certified Registered; Supervising Provider Orthopaedic Surgery Adult Reconstructive Orthopaedic Surgery; Visit Provider Orthopaedic Surgery Adult Reconstructive Orthopaedic Surgery
DX: Z96.642 Presence of left artificial hip joint (principal); M06.852 Other specified rheumatoid arthritis, left hip
CPT/HCPCS: 73502; 99213; G0463

== ENCOUNTER 2025-03-31 09:07 | Outpatient (RCR) | payer MEDICAID, SELFPAY ==
--- NOTE | 2025-03-31 12:49 | PT.OIERPT ---
PT OP Initial Eval Patient Information Outpatient Physical Therapy Treatment Date: 03/31/25 Visit Reasons: S/P LEFT lupe Medical Diagnosis: M16.12 Treatment Dx #1: Left Hip Mobility Deficits Treatment Dx #2: Abnormal Gait Start of Care: 03/31/25 Date of Onset: 01/13/25 Smoking Status Smoking Status: Never smoker Initial Assessment Subjective: Pt is a 29 y/o female s/p left hip replacement due to severe arthritis from RA. Pt still has pain (7/10) with activities. Pt has limitation with walking, standing, chores, self care, balance, cooking, cleaning, and performing recreational activities. Objective: Left Hip AROM Flexion: 90 deg Abduction: 45 deg Extension: 15 deg ER and IR: NT Left Hip MMTs: grossly 3/5 SLS: 2 sec with femoral IR Assessment: Pt demonstrate left hip mobility and strength deficits s/p surgery leading to difficulty with ADLs. Pt will benefit from physical therapy to increase ROM, strength, and work on stability. 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 Goals 1) Increase left hip AROM WFL in 12 wks to be able to perform chores 2) Decrease hip pain to 2/10 in 12 wks to be able to stand more than 30 mins 3) Increase left hip MMTs grossly to 4-/5 in 12 wks to be able to walk more than 30 mins 4) Increase SLS to 20 sec in 12 wks to be able to perform self care activities 5) Indep with HEP Treatment Plan 1) Manual Therapy 2) Therapeutic Activities 3) Therapeutic Exercises 4) Modalities (ice, heat) 5) Balance Training 6) Gait Training Frequency and Duration: 2 x wk for 12 wks Certification Dates: 03/31/25 to 07/01/25 Procedure Charges OP PT Eval Mod Complex 30 minutes: Yes
== END 2025-04-11 23:59 | disposition home or self-care (01) ==
LOC: CPTX 09:07
PROVIDERS: PCP Orthopaedic Surgery Adult Reconstructive Orthopaedic Surgery; Referring Provider Orthopaedic Surgery Adult Reconstructive Orthopaedic Surgery; Visit Provider Orthopaedic Surgery Adult Reconstructive Orthopaedic Surgery
DX: M25.552 Pain in left hip (principal); R26.2 Difficulty in walking, not elsewhere classified; R26.89 Other abnormalities of gait and mobility; Z96.642 Presence of left artificial hip joint
CPT/HCPCS: 97162

== ENCOUNTER 2025-04-08 12:55 | Outpatient (AMB) | payer MEDICAID, SELFPAY ==
--- NOTE | 2025-04-08 13:00 | PD.ORTHCLVIS ---
Vital signs 04/08/25 13:01 Height 1.55 m Height Method Measured Weight 76.742 kg Weight Measurement Method Standing Scale BMI 31.9 BP 103/67 Blood Pressure Source Automatic Cuff Blood Pressure Location Left Upper Arm Position Sitting Respiration 18 Pulse 92 Pulse Source Monitor Temp 98.2 F Temp Source Temporal Artery Scan Pulse Oximetry (%) 97 Oxygen Delivery Method Room Air Med/Allergies Allergies & Medications Allergies No Known Allergies Allergy (Verified 04/08/25 13:02) Medication Reconciliation prednisone 5 mg tablet 5 mg PO Q OTHER DAY 08/28/24 [History Confirmed 04/08/25] upadacitinib 15 mg tablet,extended release 24 hr (Rinvoq) 15 mg PO QDAY 01/12/25 [History Confirmed 04/08/25] aspirin 81 mg tablet,delayed release 81 mg PO BID #60 tabs 01/13/25 [Rx Confirmed 04/08/25] doxycycline hyclate 100 mg tablet 100 mg PO BID #14 tabs 01/13/25 [Rx Confirmed 04/08/25] gabapentin 300 mg capsule 300 mg PO .qhs #30 caps 01/13/25 [Rx Confirmed 04/08/25] sennosides 8.6 mg-docusate sodium 50 mg tablet (Senna-S) 1 tab-cap PO QDAY #30 tabs 01/13/25 [Rx Confirmed 04/08/25] oxycodone 5 mg tablet 5 mg PO Q6H PRN pain #28 tabs 01/28/25 [Rx Confirmed 04/08/25] acetaminophen 500 mg tablet (Acetaminophen Extra Strength) 1,000 mg (2 x 500 mg) PO Q6H PRN pain #90 tabs 02/25/25 [Rx Confirmed 04/08/25] Exam Exam Patient is in no acute distress and is cooperative with the examination today. Breathing is nonlabored. In no respiratory distress. Patient has no paraspinal tenderness. Spinal deformity cannot be appreciated. The gait of the patient is nonantalgic Bilateral extremities were evaluated and demonstrates sensation intact to light touch. Palpable pedal pulses are present. No significant edema is present. Bilateral knees were examined and the patient has full strength and range of motion.. The right hip was examined. Patient was able to flex to 90 degrees, adduct to 30 degrees, abduct to 40 degrees, internally rotate to 20 degrees, and externally rotate to 20 degrees. Patient has a negative logroll. Stinchfield is negative. The patient is nontender diffusely to touch. Left hip incision is clean dry and intact. Leg lengths are equal Assessment and Plan Problem List (1) Status post total hip replacement, left: Status: Acute Plan: Patient is a pleasant 29-year-old female with rheumatoid arthritis status post left total hip replacement. She reports she is doing well. She reports her pain is significant improved. She should start outpatient physical therapy. She is happy with her progress and her pain relief Plan We will see her back in 6 months Office Procedures GNS Level of Care Nursing/Assessment Patient Status: Established Patient Nursing Assessment/Reassesment: Medication Reconciliation, Orthostatic Vitals, Update PMH in EMR and Vital Signs Coordination of Care: Complex Care and Chronic Disease 1-5, Education Complex Pt/Fam, Consent,records obtained, informed consent, Results/Orders obtained and Staff clarify orders Established Patient Charge Established Patient Point Assignment: 105 Established Patient Point Charge: EP Level 3 (80-115) MA Intake Visit Data Collection New Patient or Established: Established Patient (seen at [facility] within 3 years) Reason for Visit:: F/U YAW Seen by Clinical Staff ONLY (RN/MA): No Exceptional Needs Teacher Required: No PCP or OBGYN visit in last 3 months: Yes Hx Now: No Do You Feel Safe at Home: Yes Authorities Contacted: N/A Questionairres Past Medical History Past Medical History Have you ever been diagnosed with any of the following: Neurological Problems Seizures: No Cardiology Problems Congestive Heart Failure: No Respiratory Problems Chronic Obstructive Pulmonary Disease (COPD): No Smoking: No Smoking Cessation Counseling: No Smoking Exposure: No Tobacco Use: No Clubbing: No Stomache/Intestinal Problems Hepatitis: No Genital/Urinary Problems Renal Disease: No Reproductive Problems Previous Pregnancies: Yes (4) Musculoskeletal Problems Rheumatoid Arthritis: Yes Endocrine Problems Diabetes Mellitus Type 1: No Diabetes Mellitus Type 2: No Other Problems Hospitalization: No Shingles: No Blood Transfusions: No Anesthesia Reactions: No Cancer: No Subjective Visit Visit for: follow up visit and hip Immunization / Flu Flu Vaccine in the Last 12 Months: No Flu Vaccine Exclusion Criteria: No Exclusion Criteria History of Present Illness Chief complaint: F/U YAW Patient is doing well status post total hip replacement. She is 12 weeks postop. She has resumed her rheumatology medications . She reports that the pain is significantly better than before surgery Personal History Red flag PMH: none BMI Counceling provided: No Pain Pain level (0-10): 4 Pain location: buttock Pain quality: sharp Pain timing: increases with activity Associated signs & symptoms: none Ambulatory data Ambulatory device: cane Treatments Improvement with previous injections: No Improvement with PT: No Improvement with NSAIDS: no Review of Systems Review of Systems: All systems negative unless otherwise noted in HPI.
[2025-04-08 13:01] VITALS: BP 103/67; PULSE 92; RESP 18; TEMP 36.8; O2SAT 97; BMI 31.9
== END 2025-04-08 13:17 | disposition home or self-care (01) ==
LOC: HODSRG 12:55
PROVIDERS: PCP Nurse Anesthetist, Certified Registered; Referring Provider Nurse Anesthetist, Certified Registered; Supervising Provider Orthopaedic Surgery Adult Reconstructive Orthopaedic Surgery; Visit Provider Orthopaedic Surgery Adult Reconstructive Orthopaedic Surgery
DX: Z96.642 Presence of left artificial hip joint (principal); M06.862 Other specified rheumatoid arthritis, left knee
CPT/HCPCS: 99213; G0463